=== PATIENT | female | born 1970 | race Caucasian/White ===

== ENCOUNTER 2023-04-28 07:47 | Day surgery (SDC) | payer BC ==
[~2023-04-28] VITALS: Ht 152.4 cm; Wt 47.6 kg
[2023-04-28 08:33] LABS: HCG,QUAL RESULT NEGATIVE (NEGATIVE)
[2023-04-28 08:35] VITALS: O2SAT 98
[2023-04-28] MEDS ORDERED: MEPERIDINE 100 MG INJ. 100 MG/ML VIAL ONE (09:12)
[2023-04-28] MEDS ORDERED: MIDAZOLAM HCL 5 MG/5 ML VIAL ONE (09:13)
[2023-04-28 11:30] VITALS: BP_SYST 128; PULSE 70; RESP 20
== END 2023-04-28 11:30 | disposition home or self-care (01) ==
LOC: SDS 07:47 → SMU 07:48 → SDS 11:30
PROVIDERS: ATTEND Internal Medicine Gastroenterology
DX: R10.9 Unspecified abdominal pain (principal); K64.9 Unspecified hemorrhoids; I12.0 Hypertensive chronic kidney disease with stage 5 chronic kidney disease or end stage renal disease; E11.22 Type 2 diabetes mellitus with diabetic chronic kidney disease; E78.5 Hyperlipidemia, unspecified; N18.6 End stage renal disease; D63.1 Anemia in chronic kidney disease; Z79.4 Long term (current) use of insulin; Z79.899 Other long term (current) drug therapy
CPT/HCPCS: 45378; 99152; 84703; 82962; G0378; J2250; J2175; J7042